=== PATIENT | male | born 1995 | race Two or more races ===

== ENCOUNTER 2020-06-16 13:10 | Emergency (ER) | payer MEDICAID, OTHER ==
[~2020-06-16] VITALS: Ht 170.2 cm; Wt 54.4 kg
[2020-06-16 14:02] VITALS: BP 129/84
[2020-06-16] MEDS ORDERED: FLUORESCEIN SOD 1 MG TEST STRIP OP ONE (14:30)
[2020-06-16] MEDS ORDERED: TETRACAINE HCL 0.5% OPTH(EYE) SOLN 4ML EACHEYE ONE (14:30)
== END 2020-06-16 15:35 | disposition home or self-care (01) ==
LOC: ER 13:10
DX: T15.81XA Foreign body in other and multiple parts of external eye, right eye, initial encounter (principal); S05.01XA Injury of conjunctiva and corneal abrasion without foreign body, right eye, initial encounter; X58.XXXA Exposure to other specified factors, initial encounter; Y93.89 Activity, other specified; Y92.89 Other specified places as the place of occurrence of the external cause; Y99.8 Other external cause status
CPT/HCPCS: 65222